=== PATIENT | female | born 1970 | race Two or more races ===

== ENCOUNTER 2021-02-20 10:36 | Outpatient (REF) | payer OTHER, SELFPAY ==
--- NOTE | ~2021-02-20 | XR_ITS ---
EXAMINATION: XR SHOULDER, RIGHT CLINICAL INFORMATION: Shoulder pain COMPARISON: None TECHNIQUE: AP external rotation, Grashey, scapular Y, and axillary views of the right shoulder. FINDINGS: The bones and soft tissues are normal. No fracture. Glenohumeral and acromioclavicular alignment is anatomic with normal joint space. No abnormal soft tissue calcifications. XR/XR shoulder RT min 2V IMPRESSION: Normal right shoulder.
== END 2021-02-20 10:37 | disposition home or self-care (01) ==
LOC: HO.XRAY 10:36
PROVIDERS: PCP Internal Medicine; Visit Provider Physician Assistant
DX: M25.511 Pain in right shoulder (principal); M75.41 Impingement syndrome of right shoulder
CPT/HCPCS: 20610; 73030; 99202; J1040

== ENCOUNTER → 2021-08-02 15:04 | Outpatient (BNVA) | payer OTHER, SELFPAY | PROVIDERS: PCP Internal Medicine; Visit Provider Surgery Vascular Surgery | DX: I83.12 Varicose veins of left lower extremity with inflammation (principal) | CPT/HCPCS: 99212 ==

== ENCOUNTER 2021-08-07 10:25 | Outpatient (REF) | payer OTHER, SELFPAY ==
--- NOTE | ~2021-08-07 | US_ITS ---
EXAMINATION: US LOWER EXTREMITY VENOUS (REFLUX EXAM), BILATERAL CLINICAL INDICATION: This is a 50-year-old female with venous insufficiency and varicose veins. COMPARISON: Comparison is made to the previous study dated 01/19/2019. TECHNIQUE: Color flow triplex imaging and compression Doppler was performed to evaluate both the deep and the superficial systems bilaterally. To evaluate the superficial system, the examination was performed in the upright position. Color-flow Doppler ultrasound and compression ultrasound were utilized. In addition, maneuvers were utilized to demonstrate reflux. FINDINGS: 1. DEEP VENOUS ULTRASOUND OF THE RIGHT LOWER EXTREMITY: Common Femoral Vein: Compressible, normal respiratory variation and augmented flow. Femoral vein: Compressible, normal color flow and augmentation. Popliteal Vein: Compressible, normal augmentation. Deep Reflux: There is no evidence of reflux in the deep system in either the common femoral vein or the popliteal vein. There is no evidence of a Egan's cyst. 2. SUPERFICIAL ULTRASOUND WITH DOPPLER OF RIGHT LOWER EXTREMITY: GREAT SAPHENOUS VEIN: Saphenofemoral Junction: 0.7 cm. The reflux time is 1000 460 ms. Mid Thigh: Occluded consistent with previous radiofrequency ablation. Above Knee: Occluded consistent with previous radiofrequency ablation. Below Knee: 0.2 cm. The reflux time is 3263 ms. Mid Calf: 0.1 cm. There is a reflux time is 3376 ms. Ankle: 0.2 cm. There is no reflux. GSV REFLUX: There is reflux seen at the saphenofemoral junction. There is an isolated segment of occlusion in the mid thigh down to the knee. There is reflux below the knee. DUPLICATED GREAT SAPHENOUS VEIN: There is a duplicated lateral great saphenous vein measuring 0.7 cm at the junction without reflux. There is mid thigh reflux of 2424 ms. SMALL SAPHENOUS VEIN: Proximal: 0.2 cm Distal: 0.1 cm SSV REFLUX: No evidence of reflux. VEIN OF GIACOMINI: None Imaged. PERFORATORS: There is a 0.2 cm proximal calf project geophysicist with greater than 3 seconds of reflux. VARICOSITIES: There are 0.3 cm varicose veins in the mid thigh, 0.4 cm request veins at the knee with greater than 3 seconds of reflux. 3. DEEP VENOUS ULTRASOUND OF THE LEFT LOWER EXTREMITY: Common Femoral Vein: Compressible, normal respiratory variation and augmented flow. Femoral Vein: Compressible, normal color flow and augmentation. Popliteal Vein: Compressible, normal augmentation. Deep Reflux: There is no evidence of reflux in the deep system in either the common femoral vein or the popliteal vein. There is no evidence of a Egan's cyst. 4. SUPERFICIAL ULTRASOUND WITH DOPPLER OF LEFT LOWER EXTREMITY: GREAT SAPHENOUS VEIN: Saphenofemoral Junction: 0.7 cm. There is no reflux. Mid Thigh: Occluded consistent with previous radiofrequency ablation. Above Knee: 0.1 cm. There is no reflux. Below Knee: 0.2 cm. There is no reflux. Mid Calf: 0.1 cm. There is no reflux. Ankle: 0.1 cm. There is no reflux. GSV REFLUX: There is isolated reflux at the knee. DUPLICATED GREAT SAPHENOUS VEIN: There is a 0.6 cm duplicated lateral great saphenous vein without reflux at the junction. SMALL SAPHENOUS VEIN: Proximal: 0.3 cm Distal: 0.1 cm SSV REFLUX: No evidence of reflux. VEIN OF GIACOMINI: None Imaged. PERFORATORS: There are 0.2 cm perforators in the mid thigh and proximal calf without reflux. VARICOSITIES: There are 0.3 cm varicose veins at the knee with greater than 3 seconds of reflux. There is 0.2 cm varicose veins off the small saphenous vein with greater than 2 seconds of reflux. US/US venous duplex LE BI IMPRESSION: 1. 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 There is reflux at the junction. There is also below the knee with reflux in the great saphenous vein. 2. 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 There is reflux in the mid thigh. 3. There is a patent right small saphenous vein without evidence of reflux. 4. There are varicose veins measuring 0.3 cm and 0.4 cm with greater than 3 seconds of reflux. 5. There is a patent left great saphenous vein at the junction without reflux. The great saphenous vein is occluded in the mid thigh consistent with previous radiograph difficulty ablation. 6. There is a patent duplicated left lateral great saphenous vein without reflux. 7. There is a patent left small saphenous vein without reflux at the junction. 8. There are varicose veins at the knee with greater than 3 seconds of reflux.
== END 2021-08-07 10:26 | disposition home or self-care (01) ==
LOC: HO.US 10:25
PROVIDERS: PCP Internal Medicine; Visit Provider Surgery Vascular Surgery
DX: I83.893 Varicose veins of bilateral lower extremities with other complications (principal)
CPT/HCPCS: 93970

== ENCOUNTER → 2021-08-09 14:05 | Outpatient (BNVA) | payer OTHER, SELFPAY | PROVIDERS: PCP Internal Medicine; Visit Provider Surgery Vascular Surgery | DX: I83.12 Varicose veins of left lower extremity with inflammation (principal) | CPT/HCPCS: 99212 ==

== ENCOUNTER → 2021-08-17 13:03 | Outpatient (BNVA) | payer OTHER, SELFPAY | PROVIDERS: PCP Internal Medicine; Visit Provider Surgery Vascular Surgery | DX: I83.12 Varicose veins of left lower extremity with inflammation (principal) | CPT/HCPCS: 37765 ==

== ENCOUNTER → 2021-08-23 12:59 | Outpatient (BNVA) | payer OTHER, SELFPAY | PROVIDERS: PCP Internal Medicine; Visit Provider Surgery Vascular Surgery | DX: I83.11 Varicose veins of right lower extremity with inflammation (principal) | CPT/HCPCS: 99212 ==

== ENCOUNTER → 2021-09-03 12:47 | Outpatient (BNVA) | payer OTHER, SELFPAY | PROVIDERS: PCP Internal Medicine; Visit Provider Surgery Vascular Surgery | DX: I83.11 Varicose veins of right lower extremity with inflammation (principal) | CPT/HCPCS: 37765 ==